=== PATIENT | male | born 1980 | race Caucasian/White ===

== ENCOUNTER 2018-09-01 03:13 | Emergency (ER) | payer BC ==
[~2018-09-01] VITALS: Ht 172.7 cm; Wt 95.1 kg
[2018-09-01 03:19] VITALS: Ht 172.7 cm; Wt 95.1 kg
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
--- NOTE | 2018-09-01 05:04 | ERD ---
ER Documentation Chief Complaint Chief Complaint states suicidal ideations HPI Is a 38-year-old who checks in today complaining of suicidal ideations. He denies auditory visual hallucinations. Denies homicidal ideation. History of previous psychiatric illness. ROS All systems reviewed and are negative except as per history of present illness. Allergies Allergies: Coded Allergies: No Known Drug Allergies (Verified Allergy, Unknown, 09/01/18) Physical Exam Vitals Vital Signs Date Temp Pulse Resp B/P (MAP) Pulse Ox O2 O2 Flow FiO2 Time Delivery Rate 09/01/18 97.4 85 18 159/97 99 03:19 (117) Physical Exam Const: No acute distress Head: Atraumatic Eyes: Normal Conjunctiva ENT: Normal External Ears, Nose and Mouth. Neck: Full range of motion. No meningismus. Resp: Clear to auscultation bilaterally Cardio: Regular rate and rhythm, no murmurs Abd: Soft, non tender, non distended. Normal bowel sounds Skin: No petechiae or rashes Back: No midline or flank tenderness Ext: No cyanosis, or edema Neur: Awake and alert Psych: Normal Mood and Affect Procedures/MDM Patient's behavioral symptoms have stabilized while in the department. Patient is medically cleared and appropriate for psychiatric evaluation and work up. No e/o neurologic, toxic, infectious, or metabolic cause. Recommended for 5150 involuntary admission by telemetry psychiatry. Pending placement at this time. Departure Diagnosis: Primary Impression: Suicidal ideation Condition: Serious [id number] Sep 01, 2018 05:04
--- NOTE | 2018-09-01 10:09 | QN ---
Documentation Comment Observation Note: Time: 4 hours Family Hx: Negative for diabetes Evaluation: Multiple exams showed improving symptoms and no evidence of clinical decompensation. ARIELLE TURNER MD Sep 01, 2018 10:09
[2018-09-01] MEDS ORDERED: DIPHENHYDRAMINE 25 MG CAP PO ONE (19:30)
[2018-09-01] MEDS ORDERED: ACETAMINOPHEN 325 MG TAB PO ONE (19:30)
--- NOTE | 2018-09-02 05:06 | QN ---
Documentation Comment Indication: psychosis Duration: 4 hr Family History: As documented in the original HPI The patient was observed with serial exams over the above timeframe. The patient continued to be well-appearing and observation continued without complication. All other needs have been met during emergency department stay. Routine psychiatric medications ordered: [Yes, see EMR] Hold status: [Telemetry medicine psychiatry recommended 5150 hold] Placement status: Pending DEANA SOTO MD Sep 02, 2018 05:06
[2018-09-02 18:20] VITALS: BP 154/89; PULSE 60; RESP 18
== END 2018-09-02 18:21 | disposition home or self-care (01) ==
LOC: E/R 03:13
DX: R45.851 Suicidal ideations (principal)
CPT/HCPCS: 36415; 80053; 80307; 81001; 85025; 99283; Z7610